=== PATIENT | male | born 1970 | race Caucasian/White ===

== ENCOUNTER → 2018-02-16 | Outpatient (CLI) | payer OTHER ==
--- NOTE | 2018-02-16 09:33 | CT ---
EXAMINATION TYPE: CT soft tissue neck wo/w con DATE OF EXAM: 02/16/2018 COMPARISON: None HISTORY: 47-year-old male Sialolithiasis. Patient with left-sided neck swelling which has resolved. N ow with right anterior upper neck swelling just in front of and below the right ear. TECHNIQUE: Contiguous axial scanning of the soft tissues of the neck performed without and with IV Co ntrast, patient injected with 100 mL of Isovue 300. Coronal/sagittal reconstructions performed. CT DLP: 1839 mGycm Automated exposure control for dose reduction was used. FINDINGS: Visualized intracranial structures, orbits and globes, and mastoid air cells are clear. Large mucosal retention cyst along the floor of the right maxillary sinus. Nasopharynx is clear. Bilateral palatine tonsillar hypertrophy with punctate calcifications on the left suggesting sequela of prior infection. Dental amalgam artifact causes limitation in visualization of the oral cavity. Mild lingual tonsillar hypertrophy. The glottic and subglottic structures, allowing for some motion a rtifacts, tracheal column, and visualized upper lungs are clear. Mild bronchial wall thickening may r eflect bronchitis or asthma. The parotid glands are satisfactory. No significant surrounding inflammation involving the submandibular glands or intraglandular calcific ation seen. There is a punctate 3 mm calcification at the posterior right floor of the mouth, medial to the right fibular gland, equivocal for a tiny calculus in the proximal submandibular duct, axial image 37. 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 A few prominent upper cervical lymph nodes measure up to 1.2 cm on either side, axial image 31 and 34 . Endplate spondylosis at C6-C7. IMPRESSION: 1. NO INFLAMMATORY CHANGES IDENTIFIED INVOLVING EITHER SUBMANDIBULAR GLAND. THERE IS A PUNCTATE 3 MM CALCIFICATION ALONG THE MEDIAL ASPECT OF THE RIGHT SUBMANDIBULAR GLAND WHICH IS EQUIVOCAL FOR A TINY CALCULUS IN THE PROXIMAL SUBMANDIBULAR DUCT. TINY CALCIFICATION IN THE ADJACENT PALATINE TONSIL IS FA VORED. 2. SOME PROMINENT BUT NOT ENLARGED UPPER CERVICAL LYMPH NODES MEASURING UP TO 1.2 CM. 3. ABERRANT RIGHT SUBCLAVIAN ARTERY.
== END | disposition home or self-care (01) ==
LOC: RADCTMAIN 07:05
PROVIDERS: ATTEND Family Medicine
DX: K11.8 Other diseases of salivary glands (principal); R22.0 Localized swelling, mass and lump, head
CPT/HCPCS: 70492; Q9967

== ENCOUNTER → 2019-05-16 | Outpatient (CLI) | payer BC, OTHER ==
--- NOTE | 2019-05-16 11:32 | ECHOF ---
Referral Reason:R07.9 Chest Pain E78.2 Hyperlipodemia MEASUREMENTS -------- HEIGHT: 175.3 cm WEIGHT: 81.7 kg BP: RVIDd: 3.2 cm (< 3.3) IVSd: 1.3 cm (0.6 - 1.1) LVIDd: 4.0 cm (3.9 - 5.3) LVPWd: 1.3 cm (0.6 - 1.1) IVSs: 1.7 cm LVIDs: 2.8 cm LVPWs: 1.8 cm LA Diam: 3.2 cm (2.7 - 3.8) LAESV Index (A-L): 16.75 ml/m Ao Diam: 3.5 cm (2.0 - 3.7) AV Cusp: 2.3 cm (1.5 - 2.6) MV EXCURSION: 20.824 mm (> 18.000) MV EF SLOPE: 101 mm/s (70 - 150) EPSS: 0.9 cm MV E Kaz: 0.73 m/s MV DecT: 269 ms MV A Kaz: 0.77 m/s MV E/A Ratio: 0.95 TAPSE: 20.30 mm FINDINGS -------- Sinus rhythm. This was a technically good study. The left ventricular size is normal. There is mild concentric left ventricular hypertrophy. Overa ll left ventricular systolic function is normal with, an EF between 60 - 65 %. The right ventricle is normal in size. Normal LA size by volume 22+/-6 ml/m2. The right atrium is normal in size. Interatrial and interventricular septum intact. The aortic valve is trileaflet and appears structurally normal. The mitral valve is normal. The tricuspid valve appears structurally normal. Trace/mild (physiologic) pulmonic regurgitation. The aortic root size is normal. Normal inferior vena cava with normal inspiratory collapse consistent with estimated right atrial pre ssure of 5 mmHg. There is no pericardial effusion. CONCLUSIONS -------- 1. Sinus rhythm. 2. This was a technically good study. 3. The left ventricular size is normal. 4. There is mild concentric left ventricular hypertrophy. 5. Overall left ventricular systolic function is normal with, an EF between 60 - 65 %. 6. The right ventricle is normal in size. 7. Normal LA size by volume 22+/-6 ml/m2. 8. The right atrium is normal in size. 9. Interatrial and interventricular septum intact. 10. The aortic valve is trileaflet and appears structurally normal. 11. The mitral valve is normal. 12. The tricuspid valve appears structurally normal. 13. Trace/mild (physiologic) pulmonic regurgitation. 14. The aortic root size is normal. 15. Normal inferior vena cava with normal inspiratory collapse consistent with estimated right atrial pressure of 5 mmHg. 16. There is no pericardial effusion. BLOW TORCH BURNER: Nevin Chappell RDCS
--- NOTE | 2019-05-17 12:18 | EST ---
EXERCISE STRESS AGE: 48 SEX: M HT: 69" WT: 180 PROTOCOL: Kurtis Stress Test STAGE: 4 DURATION OF EXERCISE: 12:00 HEART RATE REST: 66 BLOOD PRESSURE REST: 137/83 MAXIMUM HEART RATE ACHIEVED: 159 MAXIMUM BLOOD PRESSURE: 181/79 85% MPHR: 146 100% MPHR: 172 METS: 12.3 INDICATIONS: Chest pain. CLINICAL INFORMATION: A stress exercise study was performed. Patient was exercised for a total period of 12 minutes. The peak heart rate of 159 was achieved. Maximum blood pressure of 181/79 mmHg was noted. Resting EKG shows normal sinus rhythm with normal IA interval and QRS duration and normal ST-T waves. No ST-segment depression suggestive of ischemia was noted. Patient did not complain of any chest pain during the test. FINAL IMPRESSION: 1. This stress electrocardiogram is not suggestive of ischemia. 2. Patient's exercise tolerance is normal. 3. The patient did not complain of any anginal pain during the test. MMODL / IJN: [id number] /
== END | disposition home or self-care (01) ==
LOC: RADNMMAIN 08:42
PROVIDERS: ATTEND Family Medicine
DX: I51.7 Cardiomegaly (principal); E78.2 Mixed hyperlipidemia
CPT/HCPCS: 93017; 93306

== ENCOUNTER 2022-06-05 10:58 | Day surgery (SDC) | payer BC, OTHER ==
[2022-06-03 10:50] VITALS: BMI 27.3
[~2022-06-05 10:58] MED LIST: LACTATED RINGERS 1,000 ML IV SCH; LIDOCAINE 1% (10MG/ML) FOR IV START INTRADERMA PRN
[2022-06-05 11:36] VITALS: RESP 16; TEMP 97.7
[2022-06-05] MEDS ORDERED: PROPOFOL 10 MG/ML 20 ML VIAL IV ONE (12:36)
--- NOTE | 2022-06-05 12:51 | P.PCN ---
Date of Procedure: 06/05/22 Procedure(s) Performed: BRIEF HISTORY: Patient is a 51-year-old pleasant white male scheduled for an elective colonoscopy as a part of screening for colon cancer. PROCEDURE PERFORMED: Colonoscopy. PREOPERATIVE DIAGNOSIS: Screening for colon cancer. IV sedation per Anesthesia. PROCEDURE: After informed consent was obtained, the patient, was brought into the endoscopy unit. IV sedation was administered by Anesthesia under continuous monitoring. Digital rectal examination was normal. Initially the Olympus CF-160 flexible video colonoscope was then inserted in the rectum, gradually advanced into the cecum without any difficulty. Careful examination was performed as the scope was gradually being withdrawn. Ileocecal valve and the appendiceal orifice were visualized and appeared normal. Prep was excellent. Mucosa of the cecum, ascending colon, transverse colon, descending colon normal. The sigmoid: There was a 6 minute a sessile polyp removed by snare polypectomy. Rest of the, sigmoid colon, and rectum appeared normal. Retroflexion was performed in the rectum and no lesions were seen. The patient tolerated the procedure well. IMPRESSION: 6 mm sigmoid colon polyp status post polypectomy Rest of the colon appeared normal RECOMMENDATIONS: Findings of this examination were discussed with the patient as well as his family.. He was advised to follow with the biopsy results. If the biopsy result adenoma he can have a repeat colonoscopy in 5 years
[2022-06-05] MEDS ORDERED: LACTATED RINGERS 1,000 ML IV ONE (12:53)
[2022-06-05 13:21] VITALS: BP 106/74; PULSE 63
== END 2022-06-05 13:59 | disposition home or self-care (01) ==
LOC: ORWHC2ENDO 10:58
PROVIDERS: ATTEND Internal Medicine Gastroenterology
DX: Z12.11 Encounter for screening for malignant neoplasm of colon (principal); D12.5 Benign neoplasm of sigmoid colon; F41.9 Anxiety disorder, unspecified; Z79.899 Other long term (current) drug therapy
CPT/HCPCS: 88305; 45385; J2704